=== PATIENT | male | born 1990 | race Caucasian/White ===

== ENCOUNTER 2017-03-05 21:19 | Emergency (ER) | payer SELFPAY ==
--- NOTE | 2017-03-05 21:58 | NUR ---
CALLED NO ANSWER IN WAITING ROOM
== END 2017-03-05 22:43 | disposition left against medical advice (07) ==
LOC: ER 21:26
DX: Z53.21 Procedure and treatment not carried out due to patient leaving prior to being seen by health care provider (principal)